=== PATIENT | male | born 1945 | race Caucasian/White ===

== ENCOUNTER 2024-04-05 10:52 | Emergency (ER) | payer MEDICARE ==
[~2024-04-05] VITALS: Ht 177.8 cm; Wt 80.7 kg
[2024-04-05 11:01] VITALS: PULSE 78; RESP 18; TEMP 97.8
[2024-04-05] MEDS ORDERED: ASPIRIN 81 MG CHEW TAB PO ONE (11:30)
[2024-04-05 12:43] LABS: BASOPHILS # (AUTO) 0.1 (0.0-0.1); BASOPHILS % 0.7 % (0.0-1.0); EOSINOPHILS # (AUTO) 0.3 (0.0-0.4); EOSINOPHILS % 3.3 % (0.0-6.0); HEMOGLOBIN 13.8 g/dL (14.0-18.0); LYMPHOCYTES # (AUTO) 2.1 (1.0-3.2); LYMPHOCYTES % 25.2 % (18.0-39.1); MEAN CORPUSCULAR HEMOGLOBIN 29.7 pg (28-32); MEAN CORPUSCULAR HGB CONC 33.7 g/dL (31-35); MEAN CORPUSCULAR VOLUME 88.2 fL (81-99); MONOCYTES # (AUTO) 0.7 (0.2-0.8); MONOCYTES % 8.4 % (4.4-11.3); NEUTROPHILS # (AUTO) 5.1 (2.1-6.9); PLATELET COUNT 213 x10e3/uL (140-360); RED BLOOD COUNT 4.65 x10e6/uL (4.3-5.7); RED CELL DISTRIBUTION WIDTH 14.4 % (11.7-14.4); WHITE BLOOD COUNT 8.14 x10e3/uL (4.8-10.8)
[2024-04-05 13:00] LABS: ALBUMIN 3.8 g/dL (3.5-5.0); ALBUMIN/GLOBULIN RATIO 1.1 (0.8-2.0); ANION GAP 14.2 mmol/L (8-16); BILIRUBIN,TOTAL 1.4 mg/dL (0.2-1.2); CALCIUM 9.4 mg/dL (8.4-10.2); CREATININE, SERUM 0.76 mg/dL (0.72-1.25); TOTAL PROTEIN 7.2 g/dL (6.5-8.1)
[2024-04-05 13:01] LABS: POTASSIUM 3.2 mmol/L (3.5-5.1)
[2024-04-05 13:06] LABS: TROPONIN I 0.03 ng/mL (0-0.300)
[2024-04-05 14:23] VITALS: BP 187/78; PULSE 71; RESP 17; O2SAT 100
== END 2024-04-05 14:27 | disposition home or self-care (01) ==
LOC: ER 11:40
DX: I10 Essential (primary) hypertension (principal); E78.5 Hyperlipidemia, unspecified; K21.9 Gastro-esophageal reflux disease without esophagitis
CPT/HCPCS: 36415; 80053; 82550; 84484; 85025; 93005; 99283